=== PATIENT | male | born 1995 | race Caucasian/White ===

== ENCOUNTER 2020-12-01 09:55 | Emergency (ER) | payer SELFPAY ==
[2020-12-01 12:28] LABS: BASOPHIL 0 % (0-2); EOSINOPHIL 0 % (0-5); HCT 45.6 % (42.0-52.0); HGB 15.2 g/dl (13.2-18.0); LYMPHOCYTE 23.9 % (15-48); MCH 30.3 pg (25.0-31.0); MCHC 33.3 g/dL (32.0-36.0); MONOCYTE 3.6 % (0-12); MPV 10.5 fL (6.0-9.5); NEUTROPHIL 72.1 % (41-80); NRBC 0; PLT 166 K/uL (150-400); RBC 5.01 M/uL (4.70-6.00); RDW 12.2 % (11.5-14.0); WBC 4.7 K/uL (4.0-10.5)
[2020-12-01 12:56] LABS: ALBUMIN 3.9 g/dL (3.4-5.0); BILIRUBIN - TOTAL 0.3 mg/dL (0.2-1.0); BUN/CREAT RATIO (CALC) 11.9 RATIO; CREATININE 1.01 mg/dL (0.67-1.17); GLOBULIN (CALCULATION) 3.7 g/dL; POTASSIUM 4.1 mmol/L (3.5-5.1); TOTAL PROTEIN 7.6 g/dL (6.4-8.2)
[2020-12-01 13:04] LABS: INFLUENZA A NAA NEGATIVE (NEGATIVE)
[2020-12-01 13:16] LABS: CORONAVIRUS 2019 SARS-COV-2 POSITIVE (NEGATIVE)
[2020-12-01] MEDS ORDERED: ZPAK PO (14:58)
== END 2020-12-01 15:29 | disposition home or self-care (01) ==
LOC: FER 09:55
PROVIDERS: Internal Medicine
DX: U07.1 COVID-19 (principal); J12.82 Pneumonia due to coronavirus disease 2019
CPT/HCPCS: 36415; 71045; 80053; 85025; U0002

== ENCOUNTER 2020-12-06 08:55 | Emergency (ER) | payer OTHER ==
[~2020-12-06 08:55] MED LIST: ZPAK PO
[2020-12-06 11:27] LABS: BASOPHIL 0.3 % (0-2); EOSINOPHIL 0.3 % (0-5); HCT 43.7 % (42.0-52.0); HGB 14.5 g/dl (13.2-18.0); LYMPHOCYTE 19.5 % (15-48); MCH 29.2 pg (25.0-31.0); MCHC 33.2 g/dL (32.0-36.0); MCV 88.1 fL (78.0-100.0); MONOCYTE 8.3 % (0-12); MPV 10.4 fL (6.0-9.5); NEUTROPHIL 71.2 % (41-80); NRBC 0; PLT 299 K/uL (150-400); RBC 4.96 M/uL (4.70-6.00); RDW 11.8 % (11.5-14.0)
[2020-12-06 11:40] LABS: ALBUMIN 3.3 g/dL (3.4-5.0); BILIRUBIN - TOTAL 1.1 mg/dL (0.2-1.0); BUN/CREAT RATIO (CALC) 14.9 RATIO; CREATININE 0.87 mg/dL (0.67-1.17); GLOBULIN (CALCULATION) 4.5 g/dL; POTASSIUM 4.1 mmol/L (3.5-5.1); TOTAL PROTEIN 7.8 g/dL (6.4-8.2)
[2020-12-06] MEDS ORDERED: PHENERGAN25 M1 PO (12:01)
== END 2020-12-06 12:09 | disposition home or self-care (01) ==
LOC: FER 08:55
PROVIDERS: Internal Medicine
DX: R10.9 Unspecified abdominal pain (principal); R04.2 Hemoptysis; R19.7 Diarrhea, unspecified
CPT/HCPCS: 36415; 80053; 83690; 85025